=== PATIENT | female | born 2000 | race African-American/Black ===

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

== ENCOUNTER 2021-04-25 16:31 | Emergency (ER) | payer SELFPAY ==
[2021-04-26 15:41] LABS: SARS-CoV-2 PCR by NAA Not Detected (NotDetected)
== END 2021-04-25 17:27 | disposition home or self-care (01) ==
LOC: ERS 16:31
DX: Z20.822 Contact with and (suspected) exposure to COVID-19 (principal)
CPT/HCPCS: 99283; U0003; U0005